=== PATIENT | female | born 1960 | race Caucasian/White ===

== ENCOUNTER 2016-11-07 18:43 | Emergency (ER) | payer OTHER | END 2016-11-07 21:13 | disposition home or self-care (01) | LOC: ER 18:43 | DX: K04.7 Periapical abscess without sinus (principal); K08.89 Other specified disorders of teeth and supporting structures; K21.9 Gastro-esophageal reflux disease without esophagitis; R68.84 Jaw pain; Z79.899 Other long term (current) drug therapy | CPT/HCPCS: 96374; 96375; 96376; 99070; 99282-25 ==